=== PATIENT | male | born 1935 | race Caucasian/White ===

== ENCOUNTER 2016-06-10 14:17 | Emergency (ER) | payer MEDICARE ==
[~2016-06-10] VITALS: Ht 165.1 cm; Wt 72.7 kg
[2016-06-10 14:20] VITALS: BP 148/96; PULSE 79; RESP 16; O2SAT 97
--- NOTE | 2016-06-10 15:09 | ED.REPORT ---
HPI-General Illness Date of Service Jun 10, 2016 ED Provider: Raymond Garcia MD Pt is an 81 y.o. male who presents to the ED with an elevated INR. Pt states that he was recently diagnosed with A-fib and has been on Coumadin for 1 week. He had a blood draw today and when he returned home he recieved a call from Dr. Terry who advised him to come into the ED as his INR was greater than 10. He denies bloody/tarry stools, or recent trauma/injury. He has no complaints at this time. Nursing Notes Stated Complaint: HIGH INR Chief Complaint: General Complaint Nursing Notes Reviewed: Yes Allergies: Coded Allergies: No Known Allergies (Unverified , 06/10/16) General Time Seen by MD: 15:07 Chief Complaint Other (Elevated INR) Hx Obtained From: Patient Arrived By: Walk-in Sudden in Onset?: Yes Onset Occurred: Just prior to arrival Symptom Duration: Since onset Severity: Current: No pain currently Recent Healthcare: Recent doctor visit Similar Sx Previous: No Past Medical History Past Medical History None reported Denies: Hypertension Past Surgical History None reported Social History Other Social History: Good social support, Ambulatory Status Independent Review of Systems Elevated INR Full Review of Systems GI: Denies: Bloody/tarry stool Complete sys rev & neg: except as marked. Physical Exam Vital Signs Vital Signs Date Time Temp Pulse Resp B/P Pulse Ox O2 Delivery O2 Flow Rate FiO2 06/10/16 16:21 81 16 128/72 100 Room Air 06/10/16 14:20 36.3 79 16 148/96 97 Room Air Initial VS: Reviewed General/Constitutional: Well-developed, Well-nourished Head / Eyes: Atraumatic, Normocephalic ENT: Mucous membranes moist Extremities: Vascular intact, Neuro intact Skin: Warm, Dry, No cyanosis Neurologic: Alert, Oriented, Nonfocal Psychiatric: Mood/affect normal, Behavior normal, Normal thought content Respiratory / Chest: Atraumatic, Breath sounds NL, Breath sounds = bilat, No respiratory distress, No rales, No rhonchi, No wheezing, No retractions, No stridor Cardiovascular: Heart rate NL, Regular rhythm, Heart sounds NL, No gallop, No murmurs, No rubs, Peripheral circulation NL Abdomen: Atraumatic, Soft, Non-tender, No guarding, No rebound, No distention Interpretation & Diagnostics Lab Results Interpretation Result Diagram: 06/10/16 1450 06/10/16 1450 Test 06/10/16 14:50 White Blood Count 7.8th/mm3 (3.8-10.1) Red Blood Count 4.85mil/mm3 (4.40-5.80) Hemoglobin 15.0g/dL (13.8-17.2) Hematocrit 45.0% (41.0-50.0) Mean Corpuscular Volume 92.8fL (81-100) Mean Corpuscular Hemoglobin 30.9pg (27.0-35.0) Mean Corpuscular Hemoglobin Concent 33.3% (32.0-37.0) Red Cell Distribution Width 13.7% (12.3-15.4) Platelet Count 224bil/L (150-400) Neutrophils (%) (Auto) 69.1% (40-74) Lymphocytes (%) (Auto) 23.4% (14-46) Monocytes (%) (Auto) 5.4% (4-12) Eosinophils (%) (Auto) 1.4% (0-5) Basophils (%) (Auto) 0.4% (0-3) Prothrombin Time > 120.0sec (8.1-12.5) Prothromb Time International Ratio > 10.00ratio Sodium Level 139mEq/L (134-144) Potassium Level 3.9mEq/L (3.5-5.2) Chloride Level 101mEq/L (97-108) Carbon Dioxide Level 26mmol/L (18-29) Blood Urea Nitrogen 17mg/dL (8-27) Creatinine 0.87mg/dL (0.76-1.27) Estimat Glomerular Filtration Rate 90mL/min (>59) Glucose Level 106mg/dL (60-99) Calcium Level 8.6mg/dL (8.5-10.1) Magnesium Level 2.1mg/dL (1.6-2.6) Total Bilirubin 0.3mg/dL (0.0-1.2) Aspartate Amino Transf (AST/SGOT) 24U/L (0-50) Alanine Aminotransferase (ALT/SGPT) 22U/L (0-44) Alkaline Phosphatase 124U/L (25-160) Total Protein 7.4g/dL (6.4-8.4) Albumin 4.0g/dL (3.4-5.0) General Lab Results Interp 1: Complete met profile NL, CBC normal Re-Eval/Medical Decision Med Decision/Clinical Course In summary, the patient is an 81-year-old male with history of atrial fibrillation, recently started on Coumadin who was sent into the emergency department by his primary care physician after INR was checked earlier today and was greater than 10. He denies any symptoms whatsoever. Specifically he denies any bright red blood per rectum, melena, vomiting, headache, neurologic symptoms, lightheadedness or other complaints. He denies any symptoms of bleeding or bruising. Laboratory studies notable as below: CBC and CMP unremarkable PT>120 INR>10 Here in the emergency department the patient was given 5mg oral vitamin K. He is dynamically stable without any evidence of bleeding, but loss acutely concerning symptoms. The patient does not require any imaging studies, further observation or laboratory studies. As directed by his anti-coagulation clinic he will hold his Coumadin until he follows up with them on Monday. He is been advised to be careful about sustaining any traumatic injuries especially when supratherapeutic on his Coumadin. 5. Precautions were reviewed in detail his discharged in good condition. Discharge & Departure Primary Impression: Supratherapeutic INR Additional Impression: History of atrial fibrillation Disposition: Home Discharge Condition All VS Reviewed: Yes Condition: Stable Additional Instructions: Thank you for seeking care at emergency room. Was seen today because your INR was too high. You were treated with 1 dose of oral vitamin K. Please follow-up first thing on Monday to recheck her INR and adjust her Coumadin dose. As per the instructions given by [facility] please hold your Coumadin until they have given me further instructions. Our primary goal today in the ED was to evaluate you for any life-threatening conditions. Your evaluation was reassuring. You should return to the ED immediately if you develop any signs of bleeding, headache, bruising, black/tarry stools, bloody stools, fevers, vomiting, cough, shortness of breath, chest pain, lightheadedness, weakness or any other concerning signs or symptoms. Thank you for letting us partake in your care today. Referrals: Antoine Mesa DO (PCP) Scribe Attestation Portions of this note were transcribed by Livan Link. I, Dr. Garcia personally performed the history, physical exam and medical decision-making; I reviewed and confirmed the accuracy of the information in the transcribed note. Signed by: Mami Cardenas, 06/10/2016 and 1727. copies to: Antoine Mesa Beck O MD Jun 10, 2016 15:09 LIVAN LINK Jun 10, 2016 16:03
[2016-06-10 15:13] LABS: BASOPHILS % (AUTO) 0.4 % (0-3); EOSINOPHILS % (AUTO) 1.4 % (0-5); MONOCYTES % (AUTO) 5.4 % (4-12); Mean Corpuscular Hemoglobin 30.9 pg (27.0-35.0); Mean Corpuscular Volume 92.8 fL (81-100); NEUTROPHILS % (AUTO) 69.1 % (40-74); Platelet Count 224 bil/L (150-400)
[2016-06-10 15:34] LABS: Magnesium 2.1 mg/dL (1.6-2.6)
[2016-06-10 15:56] LABS: INR > 10.00 ratio
[2016-06-10] MEDS ORDERED: Phytonadione (Adult) 10 mg/1 mL Inj PO ONE (16:05)
[2016-06-10 16:21] VITALS: BP 128/72; PULSE 81; RESP 16; O2SAT 100
== END 2016-06-10 16:22 | disposition home or self-care (01) ==
LOC: SED 14:17
DX: R79.1 Abnormal coagulation profile (principal); I48.91 Unspecified atrial fibrillation; Z79.01 Long term (current) use of anticoagulants
CPT/HCPCS: 36415; 80053; 83735; 85025; 85610; 99283; J3430